=== PATIENT | male | born 1985 | race Caucasian/White ===

== ENCOUNTER 2022-10-09 13:44 | Emergency (ER) | payer SELFPAY ==
[~2022-10-09] VITALS: Ht 170.2 cm; Wt 74.8 kg
--- NOTE | 2022-10-09 14:00 | NUR ---
BIBFRIENShefali C/O "last couple days felt weird- today after working out had chest pain. hands tingly". AMBULATORY, PLACED IN BED, AAOX4, IN PAIN 7/10 PS, BREATHING UNLABORED SATURATING AT 98%RA, ATTACHED TO MONITOR SHOWS NORMAL SINUS RHYTYM MA- 58.
--- NOTE | 2022-10-09 15:15 | NUR ---
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
[2022-10-09 15:41] LABS: BASOPHILS % (AUTO) 0.4 % (0.0-2.0); EOSINOPHILS % (AUTO) 0.6 % (0.0-6.0); HEMATOCRIT 45 % (39-51); LYMPHOCYTES # (AUTO) 1.7 K/uL (0.8-4.8); LYMPHOCYTES % (AUTO) 15.4 % (20.0-44.0); MEAN CORPUSCULAR HGB CONC 33 g/dl (31.0-36.0); MEAN CORPUSCULAR VOLUME 93 fL (80-96); MONOCYTES # (AUTO) 0.6 K/uL (0.1-1.30); MONOCYTES % (AUTO) 5.3 % (2.0-12.0); NEUTROPHILS # (AUTO) 8.9 K/uL (1.8-8.9); NEUTROPHILS % (AUTO) 78.3 % (43.0-81.0); PLATELET COUNT (AUTO) 128 K/uL (150-450); RED BLOOD CELL COUNT(AUTO) 4.86 MIL/uL (4.5-6.0); WHITE BLOOD COUNT (AUTO) 11.3 K/uL (4.3-11.0)
[2022-10-09 15:48] LABS: CALCIUM, SERUM 9.5 mg/dL (8.5-10.1); CARBON DIOXIDE 27 mmol/L (21-32); CHLORIDE 101 mmol/L (98-107); CREATININE 0.9 mg/dL (0.6-1.3); GLUCOSE 100 mg/dL (74-106); SODIUM SERUM 134 mmol/L (136-145); UREA NITROGEN, BLOOD 20 mg/dL (7-18)
--- NOTE | 2022-10-09 18:45 | NUR ---
Patient discharged to home in stable condition. Written and verbal after care instructions given. Patient verbalizes understanding of instruction.
[2022-10-09 18:46] VITALS: BP 130/70
== END 2022-10-09 18:45 | disposition home or self-care (01) ==
LOC: ER 15:45
DX: R07.9 Chest pain, unspecified (principal)
CPT/HCPCS: 36415; 71045-TC; 80048-TC; 84484-TC; 85025-TC